=== PATIENT | female | born 1940 | race Caucasian/White ===

== ENCOUNTER 2020-09-21 09:19 | Emergency (ER) | payer MEDICARE, OTHER, SELFPAY ==
[2020-09-21 09:23] VITALS: BP 125/95; PULSE 128; RESP 18; TEMP 36.8; O2SAT 98; BMI 31.3
--- NOTE | 2020-09-21 09:31 | ED.VIS.GEN ---
History of Present Illness Chief Complaint: Flank Pain Informant: Patient Narrative: 80-year-old female presenting with back pain which she states is bilateral. This started about 5 to 6 days ago. It was not acute in onset. Patient denies any known injury but states she does have a history of osteoporosis and compression fractures. She states that when she was diagnosed with these in the ER she followed up with her primary care physician. She states there was no plan at that time for any procedures or bracing. Patient states that she has intermittent nausea but not currently. She denies hematuria or dysuria. Patient denies nausea, vomiting. Denies change in bowel habits. Past Medical History - Allergies and Home Meds Allergies/Adverse Reactions: Allergies acetaminophen [From Vicodin] Allergy (Verified 09/21/20 09:23) Rash hydrocodone [From Vicodin] Allergy (Verified 09/21/20 09:23) Rash Primary Care Physician: Lena Moralez MD [Primary Care Provider] - Prior records reviewed: Yes Past Medical History: - - Osteoporosis, hyperlipidemia, compression fractures Lives: Spouse/ Significant Other Smoking Status: Never smoker Alcohol: None Drugs: None Review of Systems General: Denies: Chills, Fever, Sweats Eyes: Denies: Visual changes - bilaterally, Diplopia ENT: Denies: Rhinorrhea, Sore throat Cardiovascular: Denies: Chest pain, Palpitations Respiratory: Denies: Dyspnea, Cough, Dyspnea on exertion Gastrointestinal: Reports: Nausea. Denies: Abdominal pain, Vomiting Genitourinary: Denies: Dysuria, Hematuria, Frequency Musculoskeletal: Reports: Back pain. Denies: Swelling, Extremity Pain Skin: Denies: Rash, Abscess Physical Exam Vital Signs/Narrative: Vital Signs Temp Pulse Resp BP Pulse Ox 09/21/20 09:23 98.2 F 128 H 18 125/95 H 98 General: Well nourished, No Acute Distress Head: Normocephalic, Atraumatic Eyes: Perrl, EOMI ENT: Moist mucous membranes, No rhinorrhea Cardiovascular: Regular rate, Regular rhythm Respiratory: No distress, CTA bilaterally Abdomen: Soft, Nontender, Nondistended Back: - - Tenderness to palpation approximately the level of T12-L1 bilaterally. No CVA tenderness bilaterally. No obvious midline deformity or step-off. Extremities: Nontender, No edema Skin: Normal color, No rash Neurological: Alert, Oriented x3 Psychological: Normal affect, Normal Mood Diagnostic/Tx/Re-eval Clinical Impression(s) from Imaging Studies Abdomen/Pelvis CT 09/21/20 09:40 IMPRESSION: Bilateral mild degree of hydronephrosis and nonobstructive intrarenal calculi. No evidence of ureteral obstruction at this time. Electronically Signed: Rc Curry MD at 10:19 EST , Service support , Laboratory Data 09/21/20 09/21/20 09/21/20 09:43 09:43 10:43 WBC 7.4 RBC 4.57 Hgb 13.6 Hct 41.8 MCV 91.5 MCH 29.8 MCHC 32.5 RDW Std Deviation 45.5 H RDW Coeff of Barbara 13.6 Plt Count 278 MPV 8.7 Immature Gran % (Auto) 0.400 Neut % (Auto) 68.3 Lymph % (Auto) 19.0 Swisher % (Auto) 8.6 Eos % (Auto) 2.6 Baso % (Auto) 1.1 H Absolute Neuts (auto) 5.1 Absolute Lymphs (auto) 1.41 Nucleated RBC % 0 Sodium 141 Potassium 3.5 Chloride 108 H Carbon Dioxide 25.0 Anion Gap 8 BUN 19 H Creatinine 0.95 Estim Creat Clear Calc 42.35 Est GFR (MDRD) Af Amer 73 Est GFR (MDRD) Non-Af 60 BUN/Creatinine Ratio 20.0 Glucose 108 H Calcium 9.6 Urine Color Yellow Urine Clarity Clear Urine pH 6.0 Ur Specific [place] 1.015 Urine Protein Negative Urine Glucose (UA) Normal Urine Ketones Negative Urine Occult Blood 50 H Urine Nitrite Negative Urine Bilirubin Negative Urine Urobilinogen Normal Ur Leukocyte Esterase Negative Urine RBC 0-5 SEEN Urine WBC 0 SEEN Ur Squamous Epith Cells 0-5 SEEN Urine Bacteria 0 SEEN Urine Mucus 0 SEEN - Medical Decision Making 80-year-old female presenting with back pain. She believes it feels like her kidneys are hurting. Her abdominal exam is benign. She does not have any CVA tenderness but does have bilateral back tenderness. Sensation is intact. Patient does have history of compression fractures but does not recall the level of which this occurred. She states she believes it was in her upper back. Her blood work today is within normal limits. Her renal function is normal. Urinalysis shows a small amount of blood in her urine without infection. Patient had CT of the abdomen pelvis without contrast which is does not identify any renal calculi that are obstructing. She does have some slight hydronephrosis as well. It is possible that she could have passed a kidney stone although she is not had any urinary complaints. CT does also identify osteopenia of the lumbar vertebrae with the almost complete collapse of the T11 and T12 vertebrae as well as loss of height of the L1 and L4 vertebrae. Since she does not recall what level she had compression deformities it is unclear if these are worsening or not new and causing the pain. I believe her physical exam is more consistent with compression fracture. Given this I will give her follow-up with Dr. Hardy. Patient does believe she needs something stronger than Tylenol or ibuprofen to move around. She states she is pretty much pain-free when she sitting but when she starts to move her back hurts. After long discussion with she and her daughter she wants to try to take Ultram. Her daughter states that she will stay with her for a few hours to make sure that she does okay with Ultram. If she does well on it she can continue. If she does not then she is supposed to discontinue this. Again I believe the patient needs to follow-up with Dr. Hardy. Impression: 1. Hematuria 2. Hydronephrosis 3. Compression deformities T11-T12 ED Disposition - Plan for ED Patient: Disposition: Home or Assisted Living Instructions: ED Kidney Stone, Passed, ED Hematuria, ED Fracture, Vertebral Compression Prescriptions: traMADol [Ultram] 50 mg PO Q6H PRN PRN 3 Days #12 tab PRN Reason: Pain Prescription Printed Referrals: Lena Moralez MD [Primary Care Provider] - Jonathan Hardy DO [STAFF PHYSICIAN] -
--- NOTE | 2020-09-21 09:40 | CT_ITS ---
STUDY: CT ABDOMEN AND PELVIS WITHOUT CONTRAST REASON FOR EXAM: Female, 80 years old. Bilateral flank pain x 6 days, hx kidney stones with removal, cholecystectomy. RADIATION DOSAGE (If Supplied By Facility): CTDIvol = ( 5.23 ) mGy, DLP = ( 312.06 ) mGycm TECHNIQUE: Transaxial images were obtained from the dome of the diaphragm to the symphysis pubis without oral contrast, and without intravenous contrast. Sagittal and coronal images were reconstructed. Individualized dose optimization techniques were used for this CT. COMPARISON: None. FINDINGS: Findings suggestive of mild linear scarring at the lung bases. Coronary artery calcifications. Normal liver. There are surgical clips in the gallbladder fossa consistent with a prior cholecystectomy. There are multiple benign calcified granulomata of the spleen. Normal pancreas. Normal bilateral adrenal glands. Scattered nonobstructive right intrarenal calculi. The largest calcification measures 5 mm and is in the posterior lower pole calyx of the right kidney. Tiny nonobstructive left intrarenal calculi. Mild bilateral hydronephrosis. There is a moderate-sized hiatal hernia. Normal small intestine. There are multiple colonic diverticula consistent with diverticulosis. The appendix is visualized and appears normal. There is diffuse atherosclerotic calcification of the abdominal aorta and its major visceral branches, without a demonstrated aneurysm. Normal inferior vena cava. Normal retroperitoneum. Normal urinary bladder. Calcified fibroid uterus. Normal abdominal wall. Osteopenia of the lumbar vertebrae with the almost complete collapse of the T11 and T12 vertebrae. Loss of height of the L1 and L4 vertebrae. CT/Abdomen/Pelvis without Cont IMPRESSION: Bilateral mild degree of hydronephrosis and nonobstructive intrarenal calculi. No evidence of ureteral obstruction at this time. Electronically Signed: Rc Curry MD at 10:19 EST , Service support ,
[2020-09-21 09:54] LABS: Absolute Lymphocyte Count 1.41 X10^3/uL (0.83-4.51); Absolute Neutrophil Count 5.1 X10^3/uL (2.0-7.7); Basophil# 0.08 X10^3/uL; Basophil% 1.1 % (0-1); Eosinophil# 0.19 X10^3/uL; Eosinophils% 2.6 % (0-5); Hematocrit 41.8 % (37-47); Hemoglobin 13.6 g/dL (12.0-15.0); Lymphocyte # 1.41 X10^3/ul (4.0); Mean Corp Hgb Conc 32.5 g/dL (32-36); Mean Corpuscular Hgb 29.8 pg (27.0-32.0); Mean Corpuscular Volume 91.5 fL (81-99); Mean Platelet Vol. 8.7 fl (6.2-12.0); Monocyte# 0.64 X10^3/uL; Monocyte% 8.6 % (0-10); NRBC Flagged by Analyzer 0 % (0-5); Neutrophil # 5.08 X10^3/uL (2.7-7.7); Neutrophil % 68.3 % (47-70); Platelet Count 278 K/mm3 (150-450); RBC Distribution Width CV 13.6 % (11.6-14.6); RBC Distribution Width SD 45.5 fl (35.1-43.9); Red Blood Count 4.57 M/mm3 (4.2-5.4); White Blood Count 7.4 K/mm3 (4.4-11.0)
[2020-09-21 10:05] LABS: Anion Gap 8 (5-15); BUN 19 mg/dL (7-18); Calcium,Total 9.6 mg/dL (8.5-10.1); Chloride 108 mmol/L (98-107); Creatinine, Serum 0.95 mg/dL (0.55-1.02); EST Glomerular Filtration Rate 60 mL/min (>60); Est Glom Filt Rate - Afr Amer 73 mL/min (>60); Estimated Creatinine Clearance 42.35 ml/min; Glucose 108 mg/dL (74-106); Potassium 3.5 mmol/L (3.5-5.1); Sodium Level 141 mmol/L (136-145)
[2020-09-21] MEDS: Morphine 2 MG/ML Syringe IV (10:16)
[2020-09-21 10:49] LABS: Bacteria 0 SEEN /hpf (None Seen); Mucous, Urine 0 SEEN /hpf (<or=2+); White Blood Cells 0 SEEN /hpf (0-5)
[2020-09-21 10:52] LABS: Color, Urine Yellow (Yellow); Glucose, Dipstick Normal (Normal); Ketone-Dipstick Negative (Negative); Leukocyte Esterase-Dipstick Negative /ul (Negative); Nitrite-Dipstick Negative (Negative); Occult Blood-Urine 50 /ul (Negative); Protein-Dipstick Negative (Negative); Specific Gravity, Urine 1.015 (1.002-1.030); Urine Bilirubin Dipstick Negative (Negative); Urine Clarity Clear (Clear); Urine Urobilinogen Normal (Normal)
[2020-09-21 11:05] LABS: Red Blood Cells-Urine 0-5 SEEN /hpf (0-5); Squamous Epithelial Cells - UA 0-5 SEEN /hpf (5-10)
[2020-09-21] MEDS: traMADol 50 MG Tablet PO (11:23)
== END 2020-09-21 11:25 | disposition home or self-care (01) ==
PROVIDERS: Emergency Provider Student in an Organized Health Care Education/Training Program; PCP Internal Medicine
DX: N13.2 Hydronephrosis with renal and ureteral calculous obstruction (principal); M85.88 Other specified disorders of bone density and structure, other site; R31.9 Hematuria, unspecified; E78.5 Hyperlipidemia, unspecified
CPT/HCPCS: 74176; 80048; 81001; 85025; 96374; 99282; A4216